=== PATIENT | female | born 1990 | race Caucasian/White ===

== ENCOUNTER 2022-10-11 12:20 | Emergency (ER) | payer MEDICAID ==
[~2022-10-11] VITALS: Ht 162.6 cm; Wt 63.6 kg
[2022-10-11 12:29] VITALS: TEMP 97.9
[2022-10-11 12:46] LABS: COLLECTION METHOD CLEAN CATCH
[2022-10-11 13:03] LABS: BASO # 0.1 K/mm3 (0.0-0.2); BASO % 0.5 % (0.0-2.0); EOS % 0.2 % (0.0-4.0); GRAN # 13.1 K/mm3 (1.4-6.5); GRAN % 76.4 % (42.2-75.2); HEMATOCRIT 38.8 % (37.0-47.0); HEMOGLOBIN 12.9 g/dl (12.5-16.0); LYMPH # 3.1 K/mm3 (1.2-3.4); LYMPH % 17.7 % (20.0-51.0); MEAN CELL VOLUME 100 fl (80.0-100.0); MEAN CORPUSCULAR HEMOGLOBIN 33 pg (27-31); MEAN CORPUSCULAR HGB CONC 33 g/dl (33.0-37.0); MEAN PLATELET VOLUME 9.7 fl (7.4-10.4); MONO # 0.8 K/mm3 (0.1-0.6); MONO % 4.8 % (1.7-9.3); PLATELET COUNT 349 K/mm3 (130-400); REDCELL DISTRIBUTION WIDTH-CV 14.8 % (11.5-14.5)
[2022-10-11 13:08] LABS: ALBUMIN 4.3 gm/dL (3.5-5.0); BILIRUBIN,TOTAL 0.6 mg/dL (0.2-1.2); CALCIUM 9.2 mg/dL (8.4-10.2); CREATININE, serum 0.83 mg/dL (0.57-1.11); POTASSIUM 3.7 mmol/L (3.5-4.5); TOTAL PROTEIN 7.8 gm/dL (6.2-8.1)
[2022-10-11 13:09] LABS: MUCOUS Present (NOT PRESENT); SQUAMOUS EPITHELIAL 0-2 /hpf (0-10); URINE BACTERIA Rare /hpf (NONE SEEN); URINE RBC >50 /hpf (0-2)
[2022-10-11 13:12] LABS: URINE APPEARANCE Hazy (CLEAR/HAZY); URINE COLOR Yellow (YELLOW); URINE PROTEIN(semi-quant) 3+ (NEGATIVE)
[2022-10-11 13:13] LABS: URINE BLOOD 3+ (NEGATIVE); URINE GLUCOSE Negative (NEGATIVE); URINE KETONE TRACE (NEGATIVE); URINE NITRATE Positive (NEGATIVE); URINE UROBILINOGEN 0.2 E.U/dL (0.2-1.0)
[2022-10-11] MEDS ORDERED: CEFTIN500 MG PO (13:28)
[2022-10-11 14:05] VITALS: BP 128/89; PULSE 80
== END 2022-10-11 14:05 | disposition home or self-care (01) ==
LOC: COL.ER 12:20
PROVIDERS: Physician Assistant
DX: N12 Tubulo-interstitial nephritis, not specified as acute or chronic (principal); Z88.0 Allergy status to penicillin
CPT/HCPCS: J0696; J1885; J2270; J2405; J7030

== ENCOUNTER 2022-10-13 21:55 | Emergency (ER) | payer MEDICAID ==
[~2022-10-13] VITALS: Ht 162.6 cm; Wt 63.6 kg
[~2022-10-13 21:55] MED LIST: CEFTIN500 MG PO
[2022-10-13 22:41] LABS: BASO # 0.1 K/mm3 (0.0-0.2); EOS # 0.1 K/mm3 (0.0-0.7); EOS % 1.3 % (0.0-4.0); GRAN # 2.7 K/mm3 (1.4-6.5); GRAN % 40.7 % (42.2-75.2); HEMATOCRIT 37.8 % (37.0-47.0); HEMOGLOBIN 13.1 g/dl (12.5-16.0); LYMPH # 3.4 K/mm3 (1.2-3.4); MEAN CELL VOLUME 96 fl (80.0-100.0); MEAN CORPUSCULAR HEMOGLOBIN 33 pg (27-31); MEAN CORPUSCULAR HGB CONC 35 g/dl (33.0-37.0); MEAN PLATELET VOLUME 9.4 fl (7.4-10.4); MONO # 0.4 K/mm3 (0.1-0.6); MONO % 5.7 % (1.7-9.3); PLATELET COUNT 284 K/mm3 (130-400); RED BLOOD COUNT 3.93 M/mm3 (4.10-5.30); REDCELL DISTRIBUTION WIDTH-CV 14.5 % (11.5-14.5)
[2022-10-13 22:48] LABS: COLLECTION METHOD CLEAN CATCH
[2022-10-13 22:50] LABS: MUCOUS Present (NOT PRESENT); SQUAMOUS EPITHELIAL 0-2 /hpf (0-10); URINE BACTERIA None Seen /hpf (NONE SEEN)
[2022-10-13 22:54] LABS: PH 6.5 (5.0-8.5); URINE APPEARANCE Clear (CLEAR/HAZY); URINE BLOOD TRACE-INTACT (NEGATIVE); URINE COLOR Yellow (YELLOW); URINE GLUCOSE Negative (NEGATIVE); URINE KETONE TRACE (NEGATIVE); URINE NITRATE Negative (NEGATIVE); URINE PROTEIN(semi-quant) 1+ (NEGATIVE); URINE UROBILINOGEN 0.2 E.U/dL (0.2-1.0)
[2022-10-13 23:00] LABS: ALBUMIN 3.8 gm/dL (3.5-5.0); BILIRUBIN,TOTAL 0.3 mg/dL (0.2-1.2); C-REACTIVE PROTEIN 0.54 mg/dL (0.00-0.50); CALCIUM 8.7 mg/dL (8.4-10.2); CREATININE, serum 0.75 mg/dL (0.57-1.11); POTASSIUM 3.5 mmol/L (3.5-4.5); TOTAL PROTEIN 7.1 gm/dL (6.2-8.1)
[2022-10-13] MEDS ORDERED: ZOFRAN ODT4 MG PO (23:16)
[2022-10-13 23:43] VITALS: BP 103/70; PULSE 89; TEMP 98.3
== END 2022-10-13 23:43 | disposition home or self-care (01) ==
LOC: COL.ER 21:55
PROVIDERS: Emergency Medicine
DX: N12 Tubulo-interstitial nephritis, not specified as acute or chronic (principal); Z88.0 Allergy status to penicillin
CPT/HCPCS: J1885; J2405; J7030

== ENCOUNTER 2022-11-08 02:43 | Inpatient (IN) | payer MEDICAID ==
[~2022-11-08] VITALS: Wt 63.6 kg
[~2022-11-08 02:43] MED LIST changes: +ZOFRAN ODT4 MG PO
[2022-11-08 03:34] LABS: BASO # 0.1 K/mm3 (0.0-0.2); BASO % 1.4 % (0.0-2.0); EOS # 0.1 K/mm3 (0.0-0.7); EOS % 2.1 % (0.0-4.0); GRAN # 2.5 K/mm3 (1.4-6.5); GRAN % 38.2 % (42.2-75.2); HEMATOCRIT 43.1 % (37.0-47.0); HEMOGLOBIN 14.8 g/dl (12.5-16.0); LYMPH # 3.4 K/mm3 (1.2-3.4); LYMPH % 51.4 % (20.0-51.0); MEAN CELL VOLUME 99 fl (80.0-100.0); MEAN CORPUSCULAR HEMOGLOBIN 34 pg (27-31); MEAN CORPUSCULAR HGB CONC 34 g/dl (33.0-37.0); MEAN PLATELET VOLUME 9.4 fl (7.4-10.4); MONO # 0.4 K/mm3 (0.1-0.6); MONO % 6.7 % (1.7-9.3); PLATELET COUNT 313 K/mm3 (130-400); RED BLOOD COUNT 4.36 M/mm3 (4.10-5.30); REDCELL DISTRIBUTION WIDTH-CV 14.6 % (11.5-14.5)
[2022-11-08 03:54] LABS: ACETAMINOPHEN < 1.0 ug/mL (10-30); ALANINE AMINOTRANSFERASE 16 U/L (0-55); ALBUMIN 4.6 gm/dL (3.5-5.0); ALCOHOL(ethanol),MEDICAL 206 mg/dL (0-10); ALKALINE PHOSPHATASE 50 U/L (40-150); ANION GAP 15 mmol/L (7-16); AST,SGOT 77 U/L (5-34); BILIRUBIN,TOTAL 0.7 mg/dL (0.2-1.2); BLOOD UREA NITROGEN 9 mg/dL (7-19); CALCIUM 9.2 mg/dL (8.4-10.2); CARBON DIOXIDE 20 mmol/L (22-29); CHLORIDE 105 mmol/L (98-107); CREATININE, serum 0.85 mg/dL (0.57-1.11); GLUCOSE 88 mg/dL (70-99); POTASSIUM 4.1 mmol/L (3.5-4.5); SALICYLATE < 5.0 mg/dL (15.0-30.0); SODIUM 140 mmol/L (136-145); TOTAL PROTEIN 8.5 gm/dL (6.2-8.1)
[2022-11-08 04:14] LABS: COLLECTION METHOD CLEAN CATCH
[2022-11-08 04:22] LABS: URINE APPEARANCE Clear (CLEAR/HAZY); URINE COLOR Yellow (YELLOW)
[2022-11-08 04:23] LABS: URINE BLOOD 1+ (NEGATIVE); URINE GLUCOSE Negative (NEGATIVE); URINE KETONE Negative (NEGATIVE); URINE NITRATE Negative (NEGATIVE); URINE PROTEIN(semi-quant) 3+ (NEGATIVE); URINE UROBILINOGEN 0.2 E.U/dL (0.2-1.0)
[2022-11-08 04:41] LABS: TRICYCLIC ANTIDEPRESS URINE NEGATIVE
[2022-11-08 09:45] LABS: MUCOUS Present (NOT PRESENT); SQUAMOUS EPITHELIAL 0-2 /hpf (0-10); URINE BACTERIA None Seen /hpf (NONE SEEN); URINE RBC 0-2 /hpf (0-2)
[2022-11-08 13:58] LABS: HIV 1/2 Antibodies Non-Reactive; HIV-1p24 Antigen Non-Reactive
[2022-11-08 14:00] VITALS: BP 133/78; PULSE 102; TEMP 98.5
--- NOTE | 2022-11-08 14:47 | NUR ---
1310 PATIENT ADMITED TO THE MEDICAL FLOOR. PATIENT IS ALERT AND ORIENTED AND MILDLY ANXIOUS. PATIENT VITALS ARE STABLE AND CHARTED. PATIENT HAS A RIGHT PIV INT. PATIENT ADMITED WITH ORDERS TO BE OBSERVED FOR SUICIDAL IDEATION. ROOM APPROPRIATE AND BELONGING SENT WITH SECURITY. [address] CASTANEDA, PATIENT HAS ORDERS TO BE OFF SI PERCAUTIONS AND ALLOWED TO HAVE PERSONAL BELONGINGS BACK AND HE TOLD HER SHE WAS ALLOWED TO HAVE VISITORS. PATIENT STILL REMAINS UNDER CLOSE SUPERVISION AND CONTINUALLY MONITORED FOR ETOH WITHDRAWL.
[2022-11-08 16:00] VITALS: BP 102/63; PULSE 88; TEMP 98.2
--- NOTE | 2022-11-08 16:14 | NUR ---
1530 CALLED [facility]. THEY PLAN TO TAKE PATIENT TO [facility] IN [place] ONCE PATIENT IS MEDICALLY STABLE AND CLEARED BY THE DOCTORS. THEY ALSO STATED THAT THEY THINK PATIENT DOESNT NEED TO BE ON SUICIDE PERCAUTIONS.
[2022-11-08 17:49] VITALS: BP 135/74; PULSE 112; TEMP 98.2
[2022-11-08 20:30] VITALS: BP_SYST 136
--- NOTE | 2022-11-08 20:30 | NUR ---
Initial shift assessment done- and child in room with patient- they are getting ready to leave for the night-- pt states she is feeling alot better, took a shower,, Up walking in room, good eye contact, no tremors noted, Tele on- ST 102-120/min, scoring only 2 on CIWA-- states shes ready to go home tomorrow.
[2022-11-08 20:51] VITALS: BP 143/82; PULSE 108; TEMP 98.1
[2022-11-08 22:01] VITALS: BP 136/80; PULSE 123; TEMP 98.2
[2022-11-08 23:39] LABS: COLLECTION METHOD CLEAN CATCH
[2022-11-08 23:41] LABS: PH 5.5 (5.0-8.5); URINE APPEARANCE Clear (CLEAR/HAZY); URINE COLOR Yellow (YELLOW)
[2022-11-08 23:42] LABS: SQUAMOUS EPITHELIAL 0-2 /hpf (0-10); URINE BACTERIA Rare /hpf (NONE SEEN); URINE BLOOD 1+ (NEGATIVE); URINE GLUCOSE Negative (NEGATIVE); URINE KETONE Negative (NEGATIVE); URINE NITRATE Negative (NEGATIVE); URINE PROTEIN(semi-quant) Negative (NEGATIVE); URINE UROBILINOGEN 0.2 E.U/dL (0.2-1.0)
[2022-11-09] VITALS (9 sets, daily range): BP systolic 129–143; BP diastolic 74–97; PULSE 71–104; TEMP 97.8–98.5
--- NOTE | 2022-11-09 05:39 | NUR ---
Quiet night- detox scores 1-2,, not requiring any Ativan this shift-- did not sleep much ,but did rest quietly- denies being super anxious-- states has insomnia, no requests at this time
[2022-11-09 07:26] LABS: BASO # 0.1 K/mm3 (0.0-0.2); BASO % 1.2 % (0.0-2.0); EOS # 0.2 K/mm3 (0.0-0.7); EOS % 3.6 % (0.0-4.0); GRAN # 2.1 K/mm3 (1.4-6.5); GRAN % 36.7 % (42.2-75.2); LYMPH # 2.8 K/mm3 (1.2-3.4); LYMPH % 50.1 % (20.0-51.0); MEAN CELL VOLUME 98 fl (80.0-100.0); MEAN CORPUSCULAR HGB CONC 35 g/dl (33.0-37.0); MEAN PLATELET VOLUME 9.8 fl (7.4-10.4); MONO # 0.5 K/mm3 (0.1-0.6); MONO % 8.2 % (1.7-9.3); RED BLOOD COUNT 3.36 M/mm3 (4.10-5.30); REDCELL DISTRIBUTION WIDTH-CV 14.2 % (11.5-14.5)
[2022-11-09 07:35] LABS: HEMATOCRIT 32.9 % (37.0-47.0); HEMOGLOBIN 11.4 g/dl (12.5-16.0); MEAN CORPUSCULAR HEMOGLOBIN 34 pg (27-31)
[2022-11-09 07:37] LABS: ALBUMIN 3.5 gm/dL (3.5-5.0); CALCIUM 8.5 mg/dL (8.4-10.2); CREATININE, serum 0.7 mg/dL (0.57-1.11); PHOSPHOROUS 2.1 mg/dL (2.3-4.7); POTASSIUM 3.4 mmol/L (3.5-4.5)
[2022-11-09 07:41] LABS: PLATELET COUNT 205 K/mm3 (130-400)
--- NOTE | 2022-11-09 08:26 | NUR ---
Pt is asleep upon entering room. Morning medications administered per eMAR. Shift assessment completed. INT in R AC patent, no edema or redness. No request at this time. Call light within reach.
[2022-11-09] MEDS ORDERED: OMNICEF 300MG300 MG PO (10:36)
--- NOTE | 2022-11-09 11:57 | NUR ---
Pt discharge instructions given. Pt given list of PCP in area. All questions answered. INT in R AC discontinued with catheter tip intact.
--- NOTE | 2022-11-09 12:39 | NUR ---
Pt escorted out of facility by [facility] [place].
--- NOTE | 2022-11-09 16:34 | NUR ---
(Late Entry) Patient seen prior to discharge. Patient not wanting to go to the [facility]. DON contacted therapist at the [facility] who states that the patient is free to return home and does not need to discharge to their facility. DON met with patient who states that she lives at home with her boyfriend Rod Saxena ([phone]) and their child. Rod is caring for the child at this time. Patient denies any SI/HI ideation at this time. She verbalizes that she utilizes alcohol as a coping mechanism due to losing a baby previously, but is wanting to follow up with [facility] for therapy services. DON educated the patient that they also provide medication management and drug/alcohol treatment. Patient is agreeable to getting established with these services. Dischargeplan: Home
== END 2022-11-09 12:39 | disposition home or self-care (01) | DRG 897 ==
LOC: COL.ER 02:43 → MEDICAL 09:03
PROVIDERS: Emergency Medicine; ADMIT Internal Medicine
PROC: HZ2ZZZZ Detoxification Services for Substance Abuse Treatment (ICD-10-PCS; principal; 2022-11-08)
DX: F10.131 Alcohol abuse with withdrawal delirium (principal); N39.0 Urinary tract infection, site not specified; T74.21XA Adult sexual abuse, confirmed, initial encounter; Z20.822 Contact with and (suspected) exposure to COVID-19; Y90.0 Blood alcohol level of less than 20 mg/100 ml; R56.9 Unspecified convulsions; Z88.0 Allergy status to penicillin; Z79.899 Other long term (current) drug therapy
CPT/HCPCS: J0696; J2060; J2550; J2765; J7030